=== PATIENT | male | born 1940 | race Caucasian/White ===

== ENCOUNTER 2018-08-11 08:51 | Inpatient (IN) | payer OTHER ==
[2018-08-11] VITALS (10 sets, daily range): BP systolic 85–106; BP diastolic 51–66
[~2018-08-11] VITALS: Ht 167.6 cm; Wt 64.9 kg
[2018-08-11 10:57] LABS: BE(vivo) -8.7 mmol/L (-2 to +3); HCO3 23.2 mmol/L (22.0-26.0); PCO2 78.1 mmHg (35.0-45.0); PO2 99.8 mmHg (80.0-100.0); pH 7.091 (7.360-7.450); sO2 94.7 % (92.0-98.0)
[2018-08-11 11:40] LABS: ABSOLUTE NEUTROPHILS 13.6 thou/uL (1.4-8.2); BASOPHILS 0.1 % (0.0-2.0); HEMATOCRIT 45.6 % (42.0-52.0); HEMOGLOBIN 14.6 gm/dL (14.0-18.0); LYMPHOCYTES 1.5 % (24.0-44.0); MCV 84.4 fL (80.0-100.0); MONOCYTES 3.3 % (1.0-8.0); PLATELET COUNT 250 thou/uL (150-400); POLYS 95.1 % (36.0-66.0); RDW 14.9 % (10.5-14.5); WBC 14.3 thou/uL (4.0-11.0)
[2018-08-11 11:48] LABS: CALCIUM 8.8 mg/dL (8.5-10.1); CREATININE 1.6 mg/dL (0.7-1.3); POTASSIUM 5.4 mmol/L (3.5-5.1)
[2018-08-11 11:51] LABS: APTT 34.7 Seconds (24.5-32.8); FIBRINOGEN 402.2 mg/dL (210-360); PROTIME 10.7 Seconds (9.3-11.4)
[2018-08-11 12:03] LABS: ALBUMIN 3.4 g/dL (3.4-5.0); TOTAL BILIRUBIN 0.5 mg/dL (<0.1-1.0); TOTAL PROTEIN 7.1 g/dL (6.4-8.2)
[2018-08-11] MEDS ORDERED: ADVAIR HFA 230M12 GM INH (12:29)
[2018-08-11] MEDS ORDERED: ALLOPURINOL 10100 M1 PO (12:30)
[2018-08-11] MEDS ORDERED: ASPIR 8181 MG PO (12:31)
[2018-08-11] MEDS ORDERED: FLONASE 0.05%50 MCG NASAL (12:31)
[2018-08-11] MEDS ORDERED: LEVALBUTER1.25 MG/0. INH (12:32)
[2018-08-11] MEDS ORDERED: UNICOMPLEX M TA1 TA1 PO (12:34)
[2018-08-11] MEDS ORDERED: MUCINEX100 MG PO (12:34)
[2018-08-11] MEDS ORDERED: PROSTATE HEALT1 EAC1 PO (12:35)
[2018-08-11] MEDS ORDERED: PREDNISONE 10 M10 M1 PO (12:35)
[2018-08-11] MEDS ORDERED: SPIRIVA INH (12:36)
[2018-08-11] MEDS ORDERED: XANAX 0.25 MG0.25 MG PO (12:36)
[2018-08-11] MEDS ORDERED: PROAIR (12:39)
[2018-08-11 12:48] LABS: BE(vivo) -4.2 mmol/L (-2 to +3); HCO3 22.5 mmol/L (22.0-26.0); sO2 98.7 % (92.0-98.0)
[2018-08-11 12:49] LABS: pH 7.298 (7.360-7.450)
[2018-08-11 15:32] LABS: BE(vivo) 0.1 mmol/L (-2 to +3); HCO3 25.5 mmol/L (22.0-26.0); PO2 108.1 mmHg (80.0-100.0); pH 7.381 (7.360-7.450); sO2 97.8 % (92.0-98.0)
[2018-08-11 15:51] LABS: URINE BILIRUBIN NEGATIVE (Negative); URINE BLOOD 1+ (Negative); URINE CLARITY CLEAR; URINE COLOR YELLOW; URINE GLUCOSE-RANDOM* NEGATIVE (Negative); URINE KETONES NEGATIVE (Negative); URINE LEUKOCYTES-REFLEX NEGATIVE (Negative); URINE NITRITE-REFLEX NEGATIVE (Negative); URINE PROTEIN (DIPSTICK) NEGATIVE (Negative); URINE SPECIFIC GRAVITY <= 1.005 (1.005-1.035); URINE UROBILINOGEN 0.2 E.U./dl (0.2-1.0)
[2018-08-11 16:01] LABS: BACTERIA-REFLEX None Seen /HPF (None Seen); CASTS None Seen /LPF (None Seen); CRYSTALS None Seen /LPF (None Seen); SQUAMOUS 0-3 Few /LPF (0-3); URINE RBC 3-10 Few /HPF (0-2)
[2018-08-11 16:02] LABS: URINE WBC-REFLEX None Seen /HPF (0-5)
--- NOTE | 2018-08-11 16:21 | NUR ---
CONSULTED TO PLACE A PICC FOR A PATIENT ADMITTED TO ICU WITH RR FAILURE ON MULTIPLE IV ANTIBIOTICS AND PROPOFOL. ORDER AND CONSENT NOTED. THE PROCEDURE WELL BENIFITS AND RISKS FOR DVT AND INFECTION DISCUSSED WITH THE AND SHE VERBALIZED UNDERSTANDING. THE RIGHT UPPER ARM BASILIC WAS WIDLEY PATENT. A #5F TRIPLE LUMEN POWER PICC WAS PLACED AFTER A BEDSIDE TIMEOUT WAS COMPLETED PER HOSPITAL POLICY. LINE WAS TRIMMED TO 40CM AND ADVANCED WITHOUT DIFFICULTY. LINE WAS CONFIRMED BY THE RADIOLOGIST (DR. HERRERA) TO BE IN GOOD POSITION. ICU NOTIFIED THAT LINE IS RELEASED FOR USE
--- NOTE | 2018-08-11 19:17 | NUR ---
PATIENT ADMITTED FROM [facility], ALERT ON LIGHT SEDATION AND INTUBATED. FOLLOWS COMMANDS. ON VENTILATOR 40%. OG TUBE TO LOW INTERMITTENT SUCTION. TURNED Q2H. 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 VANESSA PATENT AND DRAINING, ADEQUATE OUTPUT. CLOSESLY MONITORED PER DR. DAY. FAMILY UPDATED ON THE PLAN OF CARE. NO SIGNS OF ACUTE DISTRESS NOTED AT THIS TIME. WILL CONTINUE TO MONITOR.
[2018-08-12] VITALS (41 sets, daily range): BP systolic 80–150; BP diastolic 46–84
--- NOTE | 2018-08-12 04:25 | NUR ---
PT REMAINS ON VENT FIO2 30% WHICH HAS BEEN TITRATED TOWN THROUHGOUT SHIFT FROM 40% SATS CURRENTLY 97% PT AFEBRILE AND BP REMAINS SOFT. PT TOLERATING SEDATION. MAINTENANCE IVF RUNNING. OGT TO LIS. PT HAS MOMENTS OF AGITATION AND ATTEMPTING TO SIT UP OUT OF BED.
[2018-08-12 05:13] LABS: BE(vivo) -1.9 mmol/L (-2 to +3); HCO3 21.5 mmol/L (22.0-26.0); PCO2 32.8 mmHg (35.0-45.0); PO2 103.3 mmHg (80.0-100.0); pH 7.435 (7.360-7.450); sO2 97.9 % (92.0-98.0)
[2018-08-12 05:36] LABS: ABSOLUTE NEUTROPHILS 12.3 thou/uL (1.4-8.2); BASOPHILS 0.2 % (0.0-2.0); HEMATOCRIT 37.1 % (42.0-52.0); LYMPHOCYTES 3.1 % (24.0-44.0); MCH 27.2 pg (26.0-34.0); MCHC 32.7 g/dL (28.0-37.0); MCV 83.3 fL (80.0-100.0); PLATELET COUNT 231 thou/uL (150-400); POLYS 92.7 % (36.0-66.0); RBC 4.45 mil/uL (4.50-6.00); WBC 13.2 thou/uL (4.0-11.0)
[2018-08-12 05:46] LABS: HEMOGLOBIN 12.1 gm/dL (14.0-18.0)
[2018-08-12 05:51] LABS: ALBUMIN 2.7 g/dL (3.4-5.0); CREATININE 1.8 mg/dL (0.7-1.3); DIRECT BILIRUBIN 0.2 mg/dL (<0.1-0.3); TOTAL BILIRUBIN 0.4 mg/dL (<0.1-1.0); TOTAL PROTEIN 5.6 g/dL (6.4-8.2)
[2018-08-12 05:56] LABS: POTASSIUM 3.7 mmol/L (3.5-5.1)
--- NOTE | 2018-08-12 08:41 | HC ---
[facility] [place] [address] CONSULTATION Name: PRUDENCE MILLS Room #: 244-P ADM IN M.R.#: [id number] Admission: 08/11/18 ������������������ Attend Phys: Rashaad Dominguez DO Discharge: ������������������ Date of : 39 Report #: [id number] THIS REPORT FOR: //name// CC: Brian Dominguez DATE OF SERVICE: 08/11/2018 INFECTIOUS DISEASES CONSULTATION REASON FOR CONSULTATION: I was asked to evaluate concerning pneumonia and sepsis. HISTORY OF PRESENT ILLNESS: The patient is a 78-year-old, with underlying history of aortic stenosis, COPD, who presents with respiratory failure. He was initially evaluated at [facility]. He was hypercapnic. He tried BiPAP for resuscitation, but did not improve the situation. He was intubated and then transported to [facility] for further care. who was at the bedside and one other family member assisted with the history. They note that he has issues with episodes of shortness of breath for extended period of time now. He has significant amount of postnasal drip and sinus congestion. He takes nebulizers at home to help loosen things up and expectorate. In the last 48 hours, he has had progressive shortness of breath and developed respiratory failure early this morning, unable to get out of the house on his own and was brought in by EMS. No chest pain reported. No hemoptysis. He has had no nausea, vomiting or diarrhea. No palpitations or syncopal episodes. No dysuria, frequency, rash or arthritis symptoms. REVIEW OF SYSTEMS: A 10-point review of systems was negative other than what is described above. ALLERGIES: None known. MEDICATIONS: As noted on his MAR, now including vancomycin and Zosyn. He has been on prednisone 10 mg a day. PAST MEDICAL HISTORY: Pulmonary embolism, asthma, COPD, bronchitis, sinusitis, aortic stenosis, gout. FAMILY HISTORY: Noncontributory. 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 No tobacco or alcohol use. PHYSICAL EXAMINATION: [facility] [address] [place] [address] CONSULTATION Name: PRUDENCE MILLS Kvng Room #: 244-P [facility] IN ..#: [id number] Admission: 08/11/18 ������������������ Attend Phys: Rashaad Dominguez DO Discharge: ������������������ Date of : 39 Report #: [id number] VITAL SIGNS: He is afebrile and hemodynamically stable. He was sedated on propofol. He is intubated on FiO2 of 60%, AC mode. He was in sinus rhythm at 88, blood pressure was stable. GENERAL: The patient would arouse to verbal stimulus. SKIN: Without rash or decubitus. No palpable adenopathy. HEENT: Eyes, without scleral icterus. Mouth without mucositis. NECK: Supple, with no thyromegaly or mass. LUNGS: Coarse bilaterally. No consolidation. No rub. HEART: Regular without murmur, gallop or rub. ABDOMEN: Soft, nontender. No hepatosplenomegaly or mass appreciated. EXTREMITIES: With peripheral IV in place. No erythema or drainage. No clubbing, cyanosis or edema. Able to move all extremities. PSYCHIATRIC: Unable to assess mood. GENITOURINARY: External genitalia unremarkable with no masses or lesions. An indwelling Frazier catheter is present. RECTAL: Not performed. LABORATORY STUDIES: ABG on 60%, pO2 of 150, pCO2 of 47, pH 7.29. Procalcitonin 0.19. Sodium 137, potassium 5.4, bicarbonate 27, creatinine 1.6. Liver function test normal except for an AST of 58, ALT 107. Lactate 2.8. Hemoglobin 14.6, WBC 14.3, platelet count 250,000. Blood cultures pending. No sputum culture available. Chest x-ray with right lower lobe and left medial lung base infiltrates with consolidation. IMPRESSION: A 78-year-old with underlying chronic obstructive pulmonary disease, aortic stenosis and respiratory failure with bilateral pulmonary infiltrates. Suspect community-acquired pneumonia as etiology for his respiratory failure. He has farmland exposure. No tuberculosis exposure. No HIV risk factors noted. RECOMMENDATION: We will continue full support in the ICU. Obtain sputum, serum and urine samples. Broad antibiotic coverage and we will narrow pending culture results. I have discussed with nursing staff at the bedside. Will need serial chest x-rays. ��������������������������������������������� <ELECTRONICALLY SIGNED> ���������������������������������������� By: Raciel Chong MD ��������������������������������������������� 08/12/18 0841 1428 0432 Raciel Chong MD /nt
[2018-08-12 09:11] LABS: BE(vivo) -0.9 mmol/L (-2 to +3); HCO3 22.9 mmol/L (22.0-26.0); PCO2 35.1 mmHg (35.0-45.0); PO2 97.2 mmHg (80.0-100.0); pH 7.432 (7.360-7.450); sO2 97.6 % (92.0-98.0)
--- NOTE | 2018-08-12 09:18 | EKG ---
[place] [address] [address] [facility] [place] [address] ELECTROCARDIOGRAM REPORT Name: GENEPRUDENCE Room #: 244- ADM IN M.R.#: [id number] ������������������ Admission: 08/11/18 ������������������ Attend Phys: Rashaad Dominguez DO Discharge: ������������������ Date of : 39 Report #: [id number] ����������������������������������������������������������������� [id number] THIS REPORT FOR: //name// [facility] Test Date: 2018-08-12 Test Time: 07:36:29 Pat Name: PRUDENCE MILLS Department: Room: 244 P Gender: M Skid Strapper: ALESHA : 1940 Requested By: Gerardo Raymond Order Number: [id number] MD: Vazquez Vazquez Measurements Intervals [place] Rate: 101 P: 72 NC: 175 QRS: 43 QRSD: 106 T: 230 QT: 366 QTc: 475 Interpretive Statements Sinus tachycardia Abnormal T, consider ischemia, diffuse leads Compared to ECG 08/16/2004 14:11:10 T-wave abnormality now present Ventricular premature complex(es) no longer present Electronically Signed On 08-12-2018 9:18:47 CDT by Vazquez Vazquez [email or web address] ��������������������������������������������� <ELECTRONICALLY SIGNED> ���������������������������������������� By: Vazquez Vazquez MD, [facility] ��������������������������������������������� 08/12/18 0918 0736 0736 Vazquez Vazquez MD, [facility] /EPI
[2018-08-12 12:06] LABS: HIV ANTIBODY Non Reactive (Non Reactive)
--- NOTE | 2018-08-12 16:48 | NUR ---
PATIENT ALERT AND ORIENTED X4, NO COMPLAINTS OF PAIN. EXTOBATED AT 0935, ON ROOM AIR, NO COMPLAINTS OF RESPIRATORY DISTRESS. SINUS RHYTHM TO SINUS TACHYCARDIA ON GYM SUPERVISOR. TOLERATING DIET. VANESSA REMOVED AT 1630. BLOOD SUGAR MONITORED. PATIENT AND FAMILY UPDATED ON THE PLAN OF CARE. NO SIGNS OF ACUTE DISTRESS NOTED AT THIS TIME. WILL CONTINUE TO MONITOR.
[2018-08-13] VITALS (21 sets, daily range): BP systolic 100–168; BP diastolic 45–106
[2018-08-13 06:05] LABS: BASOPHILS 0.4 % (0.0-2.0); HEMATOCRIT 34.9 % (42.0-52.0); HEMOGLOBIN 11.3 gm/dL (14.0-18.0); LYMPHOCYTES 2.6 % (24.0-44.0); MCH 27.1 pg (26.0-34.0); MCHC 32.4 g/dL (28.0-37.0); MCV 83.9 fL (80.0-100.0); MONOCYTES 4.2 % (1.0-8.0); PLATELET COUNT 222 thou/uL (150-400); POLYS 92.8 % (36.0-66.0); RBC 4.16 mil/uL (4.50-6.00); RDW 14.7 % (10.5-14.5)
[2018-08-13 06:20] LABS: CALCIUM 8.3 mg/dL (8.5-10.1); CREATININE 1.5 mg/dL (0.7-1.3); POTASSIUM 4.3 mmol/L (3.5-5.1)
--- NOTE | 2018-08-13 06:29 | NUR ---
Pt slept well through the night with stable VS and no c/o pain. Becomes SOA with any exertion and SpO2 remain adequate on 2L of O2. Up to void per urinal without difficulty. Taking in PO with no c/o nausea and no BM observed. Am lab results noted, continue with POC.
--- NOTE | 2018-08-13 08:21 | EKG ---
[place] [address] [place] [address] ELECTROCARDIOGRAM REPORT Name: GENEPRUDENCE Room #: 244- ADM IN M.R.#: [id number] ������������������ Admission: 08/11/18 ������������������ Attend Phys: Rashaad Dominguez DO Discharge: ������������������ Date of : 39 Report #: [id number] ����������������������������������������������������������������� [id number] THIS REPORT FOR: //name// [facility] Test Date: 2018-08-13 Test Time: 07:38:52 Pat Name: PRUDENCE MILLS Department: Room: 244 P Gender: M Sr Community Manager: Lisa DELAROSA : 1940 Requested By: Marialuisa Brasher Order Number: [id number] MD: Vazquez Vazquez Measurements Intervals [place] Rate: 92 P: 70 WV: 177 QRS: 54 QRSD: 108 T: 217 QT: 355 QTc: 440 Interpretive Statements Sinus rhythm Ventricular premature complex Probable LVH with secondary repol abnrm Compared to ECG 08/12/2018 07:36:29 Ventricular premature complex(es) now present Sinus tachycardia no longer present Anterior T wave abnormality is less pronounced Electronically Signed On 08-13-2018 8:21:05 CDT by Vazquez Vazquez [email or web address] ��������������������������������������������� <ELECTRONICALLY SIGNED> ���������������������������������������� By: Vazquez Vazquez MD, [facility] ��������������������������������������������� 08/13/18 0821 0738 0738 Vazquez Vazquez MD, [facility] /EPI
--- NOTE | 2018-08-13 09:54 | NUR ---
Case opened to follow for dc planning needs. Pt is currently in the ICU with copd exac/pneumonia. He is a&ox4 and indicates that [place] with his . He is normally indep with gait and adl's and has no dme or hh history. He notes that he is waiting for his lungs to get better so he can have a heart cath. His pcp is Dr Brian Pacheco. 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 He has 3 steps to enter their home and 12 to the basement. He is normally able to do these indep. He is receptive to home o2 or hh if indicated at dc. No family here at present. He reports his does not drive and his dtr is a aboriginal home school liaison officer so neither will be up here during the daytime hours. Will ask for therapy evals to assess for any dc needs. The pt is hoping to transfer out of ICU today. Cm role introduced. Will follow.
--- NOTE | 2018-08-13 16:54 | NUR ---
PT IS ALERT AND ORIENTED X4. SHORT OF BREATH WITH ACTIVITY. ON 3 LITERS OXYGEN. LUNGS ARE WHEEZY TO DIMINISHED. WALK THE HALLWAY WITH PT TODAY. BOWEL SOUNDS ACTIVE X4. ABDOMEN IS ROUND. TOLERATING HEART HEALTHY DIET. SCDS ON BILATERAL. PAGED DR. MONTOYA FOR BLOOD PRESSURE MEDICATION. PT ANXIOUS AT TIMES AND MEDS GIVEN FOR ANXIETY. SINUS RHYTHM ON THE MONITOR. WILL CONTINUE TO MONITOR AND ASSESS PER NURSING
--- NOTE | 2018-08-13 20:00 | NUR ---
PT SUDDENLY JUMPED OVER BED RAIL AND YELLED OUT I HAVE TO PEE. PT STANDS TO VOID. BACK TO BED BED ALARM ON. WILL CONT TO MONITOR.
[2018-08-14] VITALS (13 sets, daily range): BP systolic 119–155; BP diastolic 62–87
--- NOTE | 2018-08-14 04:10 | NUR ---
HYPERTENSIVE AND VERY ANXIOUS BP 200/110 HYDRALAZINE 10 MG IV ATIVAN IVP FOR AGITATION. WILL CONT TO MONITOR.
--- NOTE | 2018-08-14 06:00 | NUR ---
PT RESTING QUIETLY. AROUSES EASILY. CALM AND COOPERATIVE. SBP 140/85 VOIDED 800 CC URINE TONIGHT. LUNGS SOUND MUCH CLEARER THIS HOUR. 2 L NC. SKIN COOL AND DRY. REMAINS IN SR TO SINUS TACH. WILL CONT TO MONITOR.
[2018-08-14 11:10] LABS: CALCIUM 8.4 mg/dL (8.5-10.1); CREATININE 1.4 mg/dL (0.7-1.3); POTASSIUM 4.1 mmol/L (3.5-5.1)
--- NOTE | 2018-08-14 15:04 | NUR ---
ALERT AND ORIENTED, FORGETFUL AND HARD OF HEARING RT EAR. VITALS STABLE. UP TO THE CHAIR WITH MINIMA ASSSISTANCE. HAS DENIED PAIN. CONTINUOUS TO BE SHORT OF AIR WITH ACTIVITY BUT MAINTAINS SATS ABOVE 92%. TRANSFER ORDERS IN [facility] SINCE YESTERDAY, PATIENT WAITING FOR CCU BED TO BE AVAILABLE.
[2018-08-15] VITALS (9 sets, daily range): BP systolic 109–163; BP diastolic 62–89
--- NOTE | 2018-08-15 03:21 | NUR ---
PT IS STILL VERY SHORT OF BREATH WITH MINIMAL TO MODERATE EXERTION. ASSESSMENT CHARTED. PT REDUCED TO 2L NC BY RT. PLANS ARE TO HAVE HEART CATH DONE NEXT WEEK BY CARDIOLOGY WHILE THE PT IS HERE. VSS. CALM AND COOPERATIVE ALL SHIFT. CALL LIGHT IN REACH. CONTINUE WITH PLAN OF CARE
[2018-08-15 08:31] LABS: ABSOLUTE NEUTROPHILS 13.7 thou/uL (1.4-8.2); BASOPHILS 0.1 % (0.0-2.0); HEMATOCRIT 40.4 % (42.0-52.0); LYMPHOCYTES 2.7 % (24.0-44.0); MCHC 32.2 g/dL (28.0-37.0); MCV 83.9 fL (80.0-100.0); MONOCYTES 5.6 % (1.0-8.0); PLATELET COUNT 205 thou/uL (150-400); POLYS 91.6 % (36.0-66.0); RBC 4.82 mil/uL (4.50-6.00); RDW 15.1 % (10.5-14.5); WBC 14.9 thou/uL (4.0-11.0)
[2018-08-15 08:49] LABS: ALBUMIN 3.1 g/dL (3.4-5.0); CALCIUM 8.8 mg/dL (8.5-10.1); CREATININE 1.1 mg/dL (0.7-1.3); POTASSIUM 4.5 mmol/L (3.5-5.1); TOTAL BILIRUBIN 0.6 mg/dL (<0.1-1.0); TOTAL PROTEIN 6.3 g/dL (6.4-8.2)
[2018-08-15 09:54] LABS: BE(vivo) 2.3 mmol/L (-2 to +3); HCO3 27.5 mmol/L (22.0-26.0); PCO2 44.7 mmHg (35.0-45.0); pH 7.407 (7.360-7.450)
--- NOTE | 2018-08-15 15:35 | NUR ---
PT REMAINS ON O2 2 LITERS NC. NO HOME O2. DISCHARGED FROM P.T. 08/13. CCU BED STATUS SINCE 08/13/18. POSSIBLE NEED FOR HOME O2 AND DISCUSSED WITH DR. PHILIPPE WHO INDICATES HE WILL ORDER EXERCISE OXIMETRY.
--- NOTE | 2018-08-15 16:58 | NUR ---
PT ALERT AND ORIENTED X4. CONSTANT, PRODUCTIVE COUGH WITH THICK YELLOW, BEIGE SPUTUM. LUNG SOUNDS WHZ. SPUTUM SPECIMEN SENT TO LAB. CXRAY AND ABG DONE. PT VERY SOA WITH ANY EXERTION THIS AM. THIS AFTERNOON AMBULATING IN HALLWAY WITH MIN ASSIST. O2 SAT >92% WHILE AMBULATING ON 2L/NC. UP TO CHAIR FOR WHOLE DAY TODAY. WILL CONTINUE TO MONITOR PATIENT.
[2018-08-16] VITALS: BP 142/85
[2018-08-16 04:00] VITALS: BP 116/57
--- NOTE | 2018-08-16 05:29 | NUR ---
ASSUMED PATIENT CARE AT 1900. PATIENT AAOX4 AND ON 2 L NC. PATIENT NOTED TO HAVE A STRONG COUGH. PATIENT RESTED WELL DURING THE NIGHT WITHOUT ANY COMPLAINTS OF PAIN OR NAUSEA. VS REMAINED STABLE AND HOURLY ROUNDING COMPLETED. PATIENT PROGRESSING TOWARD GOAL.
[2018-08-16 05:49] LABS: HEMATOCRIT 40.3 % (42.0-52.0); MCH 26.7 pg (26.0-34.0); MCHC 32.4 g/dL (28.0-37.0); MCV 82.4 fL (80.0-100.0); RBC 4.89 mil/uL (4.50-6.00); RDW 14.7 % (10.5-14.5); WBC 13.4 thou/uL (4.0-11.0)
[2018-08-16 05:59] LABS: ALBUMIN 2.9 g/dL (3.4-5.0); CALCIUM 8.7 mg/dL (8.5-10.1); CREATININE 1.1 mg/dL (0.7-1.3); POTASSIUM 4.1 mmol/L (3.5-5.1); TOTAL BILIRUBIN 0.3 mg/dL (<0.1-1.0); TOTAL PROTEIN 5.8 g/dL (6.4-8.2)
--- NOTE | 2018-08-16 12:51 | NUR ---
ASSUMED CARE AT SHIFT CHANGE, ALERT AND ORIENTED X4, [place]. DENIES ANY DISCOMFORT. UP WALKING AROUND THE ROOM. VSS AND AFEBRILE. WHEEZING THROUGH OUT AND REAMINS ON O2 2L, NC. BG WNL. PROGREESING TOWARDS GOALS
[2018-08-16 13:25] VITALS: BP 131/76
[2018-08-16 16:00] VITALS: BP 126/79
--- NOTE | 2018-08-16 20:00 | NUR ---
ASSUMED CARE OF PT AT 1330. PT WAS TRANSFERRED FROM ICU. PT A&OX4, UP AD SRINIVAS. PT VITAL SIGNS WITHIN NORMAL LIMITS AND WAS SINUS RHYTHM OF TELEMETRY. PT ON 2L OXYGEN AND LUNGS SOUNDS WHEEZY. PT STATE HE HAS ALWAYS HAD SHORTNESS OF AIR WITH EXCERTION. FAMILY CONCERNED WHEN PT TO BE DISCHARGED. WANT TO KNOW WHEN PT WILL HAVE HEART CATH. WILL CONT WITH POC.
[2018-08-16 20:25] VITALS: BP 143/87
[2018-08-17 00:01] VITALS: BP 116/83
[2018-08-17 04:45] VITALS: BP 130/70
--- NOTE | 2018-08-17 05:09 | NUR ---
PT. ON CHAIR AT SHIFT CHANGE; AROUND 1900; AOX4; WHEN ASKED IF PT. IS DNR; PT. STATE HE WOULD LIKE TO HAVE CPR IF STOP BREATHING; DURING ASSESSMENT C/O ACID REFLUX; SCHEDULE MEDICATION GIVEN; ABLE TO AMBULATE BY HIMSELF; ABLE TO REST THROUGH THE NIGHT WITH EYES CLOSE; VS WNL; WILL KEEP MONITORING; WILL PASS ON REPORT;
[2018-08-17 07:28] VITALS: BP 123/62
[2018-08-17 11:31] VITALS: BP 112/68
--- NOTE | 2018-08-17 16:03 | NUR ---
ASSUMED CARE OF PT AT 0700. PT A&OX4, UP AD SRINIVAS. PT NOW ON ROOM AIR AND MAINTAINING 02 SATS >90%. PT AMBULATING AROUND UNIT TO MAINTAIN STRENGTH. PT'S VITALS WNL AND PT WAS SINUS RHYTHM ON TELEMETRY. PT RECEIVED NOTICE AND EDUCATION REGARDING TELEMETRY INTERFERENCE YESTERDAY BY THIS NURSE. PLANNING FOR HEART CATH MON OR . PT RECEIVED LASIX FOR DIURESIS TODAY. PT HAD SHOWER. WILL CONT WITH POC.
[2018-08-17 16:19] VITALS: BP 115/59
[2018-08-17 20:00] VITALS: BP 119/78
[2018-08-17 22:05] LABS: ADENOVIRUS Negative (Negative); INFLUENZA A Negative (Negative); INFLUENZA B Negative (Negative); METAPNEUMOVIRUS Negative (Negative); PARAINFLUENZA 1 Negative (Negative); PARAINFLUENZA 2 Negative (Negative); PARAINFLUENZA 3 Negative (Negative); RHINOVIRUS Negative (Negative); RSV A Negative (Negative); RSV B Negative (Negative)
[2018-08-18] VITALS (10 sets, daily range): BP systolic 106–139; BP diastolic 65–82
--- NOTE | 2018-08-18 04:48 | NUR ---
PT RESTING ON AND OFF THRU THE NOC, VSS WNL, HR SR, NO C/O PAIN WILL CON'T TO MONITOR PER PPOC.
[2018-08-18 11:00] LABS: HEMATOCRIT 39.2 % (42.0-52.0); HEMOGLOBIN 12.6 gm/dL (14.0-18.0); MCH 26.7 pg (26.0-34.0); MCHC 32.2 g/dL (28.0-37.0); MCV 82.9 fL (80.0-100.0); RBC 4.72 mil/uL (4.50-6.00); RDW 14.8 % (10.5-14.5); WBC 11.6 thou/uL (4.0-11.0)
[2018-08-18 11:09] LABS: CALCIUM 8.7 mg/dL (8.5-10.1); CREATININE 1.1 mg/dL (0.7-1.3); MAGNESIUM 2.2 mg/dL (1.8-2.4); POTASSIUM 3.5 mmol/L (3.5-5.1)
--- NOTE | 2018-08-18 12:08 | NUR ---
Assess due to length of stay. Admit with acute/chronic respiratory failure, hx COPD and had be intubated. Extubated 08/12 and now s/p PTCA this am. Diet has readvanced. Has been tolerating oral intake past few days. Wts sown 8 lb but required some diuresis. Low nutrition risk
--- NOTE | 2018-08-18 16:50 | NUR ---
Patient assessments and vital signs as documented. He has been up ambulating since the cardiac catheterization. Dressing is clean dry and intact, no hematoma or bleeding noted. No numbness/tingling noted. He denies pain. He is on room air with oxygen saturations >95%. Nurse to continue to monitor patient status.
--- NOTE | 2018-08-18 18:32 | NUR ---
PATIENT AMBULATED AROUND THE HALLWAYS THIS EVENING. HE TOLERATED ACTIVITY WELL. NO BLEEDING NOTED AT RIGHT GROIN SITE. NO HEMATOMA, SITE IS CLEAN, DRY, AND INTACT.
[2018-08-19 03:35] VITALS: BP 107/67
[2018-08-19 03:45] LABS: HEMATOCRIT 40.4 % (42.0-52.0); MCH 26.6 pg (26.0-34.0); MCHC 32.2 g/dL (28.0-37.0); MCV 82.5 fL (80.0-100.0); RBC 4.9 mil/uL (4.50-6.00); WBC 14.6 thou/uL (4.0-11.0)
--- NOTE | 2018-08-19 03:49 | NUR ---
ASSESSMENTS CHARTED. PATIENTS GROIN SITE IS C/D/I/SOFT. DENIES PAIN. PATIENT IS CONCERNED THAT HIS FAMILY IS AN HOUR AWAY AND THAT HE WILL BE NOTIFIED IN ENOUGH TIME TO TELL HIS FAMILY TO COME GET HIM. HE IS HOPING TO GO HOME IN AM.
[2018-08-19 04:12] LABS: ALBUMIN 3.1 g/dL (3.4-5.0); CREATININE 1.3 mg/dL (0.7-1.3); POTASSIUM 3.9 mmol/L (3.5-5.1); TOTAL BILIRUBIN 0.5 mg/dL (<0.1-1.0); TOTAL PROTEIN 5.9 g/dL (6.4-8.2); TROPONIN-I 0.26 ng/mL (<0.06)
[2018-08-19 07:17] VITALS: BP 106/74
[2018-08-19] MEDS ORDERED: BYSTOLIC10 MG PO (07:58)
[2018-08-19] MEDS ORDERED: ATORVASTATIN CA40 MG PO (07:58)
[2018-08-19] MEDS ORDERED: ASPIR 8181 MG PO (07:58)
[2018-08-19] MEDS ORDERED: EFFIENT10 MG PO (07:58)
[2018-08-19] MEDS ORDERED: BENICAR40 MG PO (07:58)
[2018-08-19 11:32] VITALS: BP 107/55
[2018-08-19] MEDS ORDERED: CEFDINIR300 MG PO (12:03)
[2018-08-19] MEDS ORDERED: TORSEMIDE20 MG PO (12:05)
[2018-08-19] MEDS ORDERED: PREDNISONE 10 M10 MG PO (12:13)
[2018-08-19 12:29] VITALS: BP 107/55
--- NOTE | 2018-08-19 13:54 | NUR ---
ASSUMED CARE OF PT AT APPROX 0930. PT A&OX4, UP AD SRINIVAS. PT VERY ANXIOUS TO GO HOME. PT VITALS WITHIN NORMAL LIMITS EXCEPT BLOOD PRESSURE SLIGHTLY LOW. PT ASYMTOMATIC. PT WAS SINUS RHYTHM ON THE TELE MONITOR. PICC LINE REMOVED. TELEMETRY REMOVED. PT AND FAMILY STATED THAT PT HAD ALL BELONGING. PT AND SPOUSE COMMUNICATED UNDERSTANDING OF ALL DISCHARGE ORDERS, MEDS AND FOLLOWUP APPTS. PT GIVEN INFORMATION ON GROIN SIGHT CARE. PT TAKEN TO EXIT BY VOLUTEER VIA WHEELCHAIR AND FAMILY THERE TO DRIVE HIM HOME
--- NOTE | 2018-08-19 18:10 | HC ---
[facility] [place] [address] CONSULTATION Name: PRUDENCE MILLS Room #: 200-I [facility] IN .R.#: [id number] Admission: 08/11/18 ������������������ Attend Phys: Rashaad Dominguez DO Discharge: 08/19/18 ������������������ Date of : 39 Report #: [id number] THIS REPORT FOR: //name// CC: Brian Julian MD DATE OF SERVICE: 08/11/2018 PULMONARY CONSULTATION REFERRING PHYSICIAN: Rashaad Dominguez DO. REASON FOR CONSULTATION: Acute respiratory failure and possible sepsis. HISTORY OF PRESENT ILLNESS: The patient is a 78-year-old gentleman who was transferred from [facility] with respiratory failure. A pulmonary consultation was requested. The patient has known COPD. He is followed longitudinally by Dr. Renato Julian. History is limited. According to records, the patient presented to the Emergency Department at [place], [place] with acute onset of shortness of breath. The saturation was said to be 85% at rest. 911 was called. EMS transported the patient to the ER. There, the patient was found to be in severe distress where he had to be intubated. Chest x-ray performed at [facility] showed patchy strand-like opacities in the lower lung carroll, perihilar area, upper lobes and some atelectatic changes. PAST MEDICAL HISTORY: Includes history of COPD, severity unknown; obstructive sleep apnea, gout, hypertension, history of aortic stenosis, history of dilated cardiomyopathy, peripheral artery disease including carotid artery stenosis, chronic maxillary sinusitis, osteoarthritis, low back pain, history of pulmonary embolus diagnosed in 05/2017. PAST SURGICAL HISTORY: Carpal tunnel surgery, colonoscopy, sinus surgery, status post carotid endarterectomy. ALLERGIES: None to medications. HOME MEDICATIONS: List reviewed. This include Advair, Flonase, levalbuterol, prednisone 10 mg once a day, ProAir, Spiriva, Xanax, allopurinol, aspirin, Mucinex, multivitamins, prostate health. FAMILY HISTORY: Unknown. SOCIAL HISTORY: The patient is a lifetime nonsmoker according to the records. [facility] [address] [place] [address] CONSULTATION Name: EUGENIO MILLSODALIS Calderon Room #: 200-I [facility] IN [facility]#: [id number] Admission: 08/11/18 ������������������ Attend Phys: Rashaad Dominguez DO Discharge: 08/19/18 ������������������ Date of : 39 Report #: [id number] REVIEW OF SYSTEMS: Deferred as the patient is intubated. PHYSICAL EXAMINATION: GENERAL: He is sedated. VITAL SIGNS: Blood pressure 180/130 mmHg, pulse is 120 beats per minute, respiratory rate is 20, saturating 100%. HEENT: Normocephalic, atraumatic. NECK: Supple, without lymphadenopathy or thyromegaly. CHEST: Breath sounds are fair without obvious wheezes. Few scattered crackles. CARDIOVASCULAR: Normal S1, S2. No obvious murmurs or gallop. ABDOMEN: Soft, nontender, no organomegaly or masses felt. GENITOURINARY: Deferred. RECTAL: Deferred. EXTREMITIES: There is some mild cyanosis diffusely. NEUROLOGIC: Deferred. LABORATORY DATA: Portable chest x-ray report as mentioned above. Chest x-ray pending presently. EKG performed at [facility] shows sinus tachycardia, nonspecific ST-T changes without any acute ST elevation or depression. Arterial blood gas at [facility] revealed pH 7.09, pCO2 of 80, pO2 of 256. Sodium 140, potassium 4.6, chloride 102, CO2 is 24, creatinine is 1.3. Liver functions are mildly abnormal. BNP is 2300. WBC 16,900, hemoglobin is 14.9, platelets are normal. IMPRESSION: 1. Acute on chronic hypercapnic hypoxic respiratory failure. The patient has a history of chronic obstructive pulmonary disease along with sleep apnea. Chest x-ray shows patchy bilateral infiltrates. He has aortic stenosis along with cardiomyopathy. With the acuity of symptoms, pneumonia is likely, cannot rule out component of heart failure. 2. Chronic obstructive pulmonary disease, severity unknown, on exacerbation. 3. Bilateral infiltrates as mentioned above, probable pneumonia, possible heart failure. 4. Aortic stenosis, check echocardiogram. 5. Dilated cardiomyopathy. 6. Renal insufficiency, presumed acute kidney injury due to sepsis, acute tubular necrosis. 7. Elevated liver enzymes due to presumed sepsis. 8. History of pulmonary embolus, details unknown, originally diagnosed in 05/2017, not on anticoagulation on admission. 9. Chronic back pain with osteoarthritis. 10. History of chronic sinusitis. 11. Peripheral artery disease with carotid artery stenosis, status was carotid endarterectomy. 12. History of gout. [address] [address] CONSULTATION Name: PRUDENCE MILLS Kvng Room #: 200-I [facility] IN [facility].#: [id number] Admission: 08/11/18 ������������������ Attend Phys: Rashaad Dominguez DO Discharge: 08/19/18 ������������������ Date of : 39 Report #: [id number] RECOMMENDATION: We will treat for presumed pneumonia, possible heart failure, sepsis protocol has been initiated, treat for exacerbation of COPD with steroids, bronchodilators. We will need to monitor urine output closely. I will obtain echocardiogram, repeat EKG, laboratory data, ABG. In regards to his mechanical ventilation, his lung compliance is quite poor with high peak air pressures, tidal volume only around 450. Reasons for these are unclear other than underlying parenchymal lung disease such as pulmonary fibrosis and profound pneumonia and/or heart failure. DVT and GI prophylaxis recommended. Critical care 1 hour. Thank you for this consultation. ��������������������������������������������� <ELECTRONICALLY SIGNED> ���������������������������������������� By: Yamil Cox MD ��������������������������������������������� 08/19/181809 1132 21 Yamil Cox MD /nt
--- NOTE | 2018-08-20 09:23 | EKG ---
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 Kitchen 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: HERLINDA : 1940 Requested By: Gerardo Raymond Order Number: [id number] MD: Franklin Lopez Measurements Intervals [place] Rate: 89 P: 70 [place]: 167 QRS: 51 QRSD: 106 T: 237 QT: 363 QTc: 442 Interpretive Statements Sinus rhythm LVH with secondary repolarization abnormality Baseline wander in lead(s) V2 Compared to ECG 08/13/2018 07:38:52 Ventricular premature complex(es) no longer present Electronically Signed On 08-20-2018 9:23:00 CDT by Franklin Lopez [email or web address] ��������������������������������������������� <ELECTRONICALLY SIGNED> ���������������������������������������� By: Franklin Lopez MD ��������������������������������������������� 08/20/1823 7 7 Franklin Lopez MD /EPI
--- NOTE | 2018-08-21 11:43 | CATHLAB ---
[facility] [address] [place] [address] INVASIVE PROCEDURE REPORT Name: PRUDENCE MILLS Kvng Room #: 200-I DIS IN [facility]#: [id number] ������������� Admission: 08/11/18 ������������� Attend Phys: Rashaad Dominguez, Discharge: ��� 08/19/18 ������������� ��� Date of : 38 Date of Service: 08/21/18 1143 �� Report #: [id number] �������� ��������������������������������������������[id number] THIS REPORT FOR: //name// APPROVED REPORT Study performed: 08/18/2018 08:09:21 Patient Details Patient Status: In-Patient Room #: The patient is a 78 year-old male Event Personnel Gerardo Raymond Block Saw Operator, Jose Amor RN, Natalie Matias Monitor, Cindy Nj Scrub Procedures Performed Art Access - R femoral artery* Jake Access - R femoral vein 71656 Initial Mod Sed Same Phys/QHP Gr5y 998756 98563 Mod Sed Same Phys/QHP Ea 759455 Right and Left Heart Cath w/or w/o Coronarie [id number] [facility] Place w/wo Plasty Single OM 481926 PTCA Single Vessel CIRC 3248476 PCISINGLE Aortogram Abdominal Peripheral Angio 970496 Indication Chest pain Procedure Narrative The Right Groin^ was infiltrated with subcutaneous anesthesia. A Right Heart Catheterization was performed with a 7 Fr. [place] catheter and pressure were recorded. Cardiac outputs were obtained by the Thermal Dilution method. A PINNACLE 6FR TIF Sheath #[id number] sheath was inserted into the RFA^. Coronary angiography was performed using coronary diagnostic catheters. The right coronary system was accessed and visualized with a JR 4 catheter. The left coronary system was accessed and visualized with a JL 4 catheter. The left ventricle was accessed and visualized with a Pigtail catheter. Left ventriculogram was performed in AYON projection. An aortogram of the abdominal aorta was performed. Closure device was deployed with a 6 Fr Mynx. The patient tolerated the procedure well and there were no complications associated with the procedure. There was no hematoma. Intraoperative Conscious Sedation Sedation start time: 08:45 Case end Time: 09:54 Versed [address] [address] INVASIVE PROCEDURE REPORT Name: PRUDENCE MILLS Kvng Room #: 200-I [facility]#: [id number] ������������� Admission: 08/11/18 ������������� Attend Phys: Rashaad Dominguez, Discharge: ��� 08/19/18 ������������� ��� Date of : 38 Date of Service: 08/21/18 1143 �� Report #: [id number] �������� ��������������������������������������������[id number] Fluoro Time: 18.07 minutes Dose: DAP 48493.00 cGycm2 1788 mGy Contrast Type and Amount: Omnipaque 200 ml Hemodynamics The right atrial mean pressure is 10 mmHg. The right ventricular pressure is 37/5 mmHg. The pulmonary artery pressure is 38/11 mmHg with a mean of 24 mmHg. The mean pulmonary capillary wedge pressure is 13 mmHg. The aortic pressure is 116/54 mmHg with a mean of 78 mmHg. The left ventricular pressure is 124/22 mmHg with a mean of mmHg. The left ventricular end diastolic pressure is 33 mmHg. The cardiac output using thermo method is 4.40 L/min. The cardiac index using thermo method is 2.48 L/min/m2. PCI Technique Lesion Percutaneous coronary intervention was performed on the mid circumflex artery segment. A LAUNCHER 6FR EBU 3.5 #[id number] Guide Catheter was used to engage the ostium. A Luge Wire .014 x 182CM #[id number] Interventional Guidewire was used to cross the lesion. BALLOON DILATION A Balloon catheter Sprinter OTW 2.5 x 12 #[id number] was inserted and inflated up to 10.00atm for 27seconds. Additional Inflation: 8.00atm for 33seconds. Additional Inflation: 8.00atm for 42seconds. PCI Technique Lesion 2 Percutaneous Coronary Intervention was performed on the first obtuse marginal branch segment. A LAUNCHER 6FR EBU 3.5 #653943 Guide Catheter was used to engage the ostium. A Luge Wire .014 x 182CM #[id number] Interventional Guidewire was used to cross the lesion. Balloon Dilation A Balloon catheter Sprinter OTW 2.5 x 12 #[id number] was inserted and inflated up to 6atm for 21seconds. Additional Inflation: 8atm for 19seconds. Additional Inflation: 10atm for 27seconds. Stent Deployment A drug-eluting stent RESOLUTE ANURAG OTW 2.75 X 12 #[id number] was inserted and inflated up to 7.00atm for 42seconds. Additional Inflation: 12.00atm for 23seconds. Additional Inflation: 14.00atm for 22seconds. Post Stent Deployment Balloon Dilation [facility] [address] [place] [address] INVASIVE PROCEDURE REPORT Name: PRUDENCE MILLS Room #: 200-I [facility] IN .R.#: [id number] ������������� Admission: 08/11/18 ������������� Attend Phys: Rashaad Dominguez, Discharge: ��� 08/19/18 ������������� ��� Date of : 38 Date of Service: 08/21/18 1143 �� Report #: [id number] �������� ��������������������������������������������[id number] A Balloon catheter Euphora NC RX 3.0 x 8 #[id number] was inserted and inflated up to 18.00atm for 22seconds. Additional Inflation: 12atm for 23seconds. Conclusion #1 successful PTCA stent of a ostial circumflex OM placement of a 2.75 x 12 [place] resolute stent postdilated 3.1 mm yielding FRANCINE grade 3 flow #2 successful PTCA through the circumflex OM stent into the mid circumflex 80% pinched lesion to 20% post dilation #3 left main mild ostial disease of 20% giving rise to LAD and circumflex #4 LAD is mild lead disease in the mid vessel this extends around the apex is relatively small distal vessel no occlusive disease #5 dominant right coronary artery is tortuous 4050% proximal mid vessel fairly well preserved distal RCA and PDA small but dominant vessel no occlusive disease. #6 normal left ventricular size with mild global hypokinesis slightly worse inferior lateral EF 40% range #7 abdominal aortogram is diffusely diseased calcified. The right renal artery appears to have a 50% eccentric lesion mild disease in the left renal artery no aneurysm formation. #8 successful right heart catheterization with hemodynamics as stated above Indications and plan: Continue aggressive risk factor modification. Dual antiplatelet therapy to continue indefinitely. Complex intervention here with 2 wire technique and retrieval of main circumflex through the stent placed in the ostial circumflex OM OM was a large vessel had significant distribution. Transfer to U in stable condition. Only mild pulmonary hypertension noted on right heart catheterization ��������������������������������������������� <ELECTRONICALLY SIGNED> ���������������������������������������� By: Gerardo Raymond MD, FACC ��������������������������������������������� 08/21/18 1143 1143 1143 Gerardo Raymond MD, FAC /INF
== END 2018-08-19 13:22 | disposition home or self-care (01) | DRG 853 ==
LOC: 3W 08:51 → ICU 09:09 → 2N 08-16 13:43 → ENTRNSPT 08-19 12:56 → EDTRNSPTSTS 08-19 13:12 → 2N 08-19 13:22
PROVIDERS: Internal Medicine; Internal Medicine Cardiovascular Disease; Internal Medicine Pulmonary Disease; Nurse Practitioner Adult Health; Pediatrics; Specialist; ADMIT Internal Medicine Geriatric Medicine
PROC: 0BH17EZ Insertion of Endotracheal Airway into Trachea, Via Natural or Artificial Opening (ICD-10-PCS; principal; 2018-08-11)
PROC: 02HV33Z Insertion of Infusion Device into Superior Vena Cava, Percutaneous Approach (ICD-10-PCS; principal; 2018-08-11)
PROC: 5A1935Z Respiratory Ventilation, Less than 24 Consecutive Hours (ICD-10-PCS; principal; 2018-08-11)
PROC: 3E073PZ Introduction of Platelet Inhibitor into Coronary Artery, Percutaneous Approach (ICD-10-PCS; 2018-08-18)
PROC: 027034Z Dilation of Coronary Artery, One Artery with Drug-eluting Intraluminal Device, Percutaneous Approach (ICD-10-PCS; 2018-08-18)
PROC: 4A023N8 Measurement of Cardiac Sampling and Pressure, Bilateral, Percutaneous Approach (ICD-10-PCS; 2018-08-18)
PROC: B2151ZZ Fluoroscopy of Left Heart using Low Osmolar Contrast (ICD-10-PCS; 2018-08-18)
PROC: B2111ZZ Fluoroscopy of Multiple Coronary Arteries using Low Osmolar Contrast (ICD-10-PCS; 2018-08-18)
PROC: B4101ZZ Fluoroscopy of Abdominal Aorta using Low Osmolar Contrast (ICD-10-PCS; 2018-08-18)
DX: A41.9 Sepsis, unspecified organism (principal); J96.21 Acute and chronic respiratory failure with hypoxia; J96.22 Acute and chronic respiratory failure with hypercapnia; N17.0 Acute kidney failure with tubular necrosis; J15.4 Pneumonia due to other streptococci; I42.0 Dilated cardiomyopathy; J44.1 Chronic obstructive pulmonary disease with (acute) exacerbation; J44.0 Chronic obstructive pulmonary disease with (acute) lower respiratory infection; I13.0 Hypertensive heart and chronic kidney disease with heart failure and stage 1 through stage 4 chronic kidney disease, or unspecified chronic kidney disease; K75.9 Inflammatory liver disease, unspecified; Z66 Do not resuscitate; G47.33 Obstructive sleep apnea (adult) (pediatric); M10.9 Gout, unspecified; J44.9 Chronic obstructive pulmonary disease, unspecified; I25.10 Atherosclerotic heart disease of native coronary artery without angina pectoris; I73.9 Peripheral vascular disease, unspecified; N18.3 Chronic kidney disease, stage 3 (moderate); I50.9 Heart failure, unspecified; E78.5 Hyperlipidemia, unspecified; M19.90 Unspecified osteoarthritis, unspecified site; I35.0 Nonrheumatic aortic (valve) stenosis; Z86.711 Personal history of pulmonary embolism; Z79.51 Long term (current) use of inhaled steroids; Z79.82 Long term (current) use of aspirin; Z79.899 Other long term (current) drug therapy; Z82.49 Family history of ischemic heart disease and other diseases of the circulatory system
CPT/HCPCS: 10078; 10081; 27000

== ENCOUNTER 2019-04-07 14:12 | Inpatient (IN) | payer OTHER ==
[~2019-04-07] VITALS: Ht 165.1 cm; Wt 67.4 kg
--- NOTE | ~2019-04-07 | HC ---
[facility] [place] [address] CONSULTATION Name: PRUDENCE MILLS Room #: 213-P ADM IN .R.#: [id number] Admission: 04/07/19 Attend Phys: Arvind Agarwal MD Discharge: Date of : 38 Report #: [id number] THIS REPORT FOR: //name// CC: Arvind Agarwal [facility] physician/PCP Gerardo Raymond REASON FOR CONSULTATION: Elevated creatinine. REASON FOR PRESENTATION: Abnormal kidney function. HISTORY OF PRESENT ILLNESS: A 78-year-old with extensive past medical history including COPD, coronary artery disease, ischemic cardiomyopathy. Also, known to have aortic stenosis, chronic kidney disease with a baseline creatinine of around 1.4. He was in [facility] in the early part of this month in the Emergency Room and his creatinine value was 1.5. The patient has not been feeling well ever since. He was treated for influenza. It looks like that he had some issues with his heart and was discharged on oral Cardizem and Xarelto. He continued to have major issues with shortness of breath and visited with his primary care physician who has done some laboratory values on him that showed an elevated creatinine at 3.2. He reported to decreased oral intake in the last few days with his current flu illness. He was maintained on olmesartan and torsemide as an outpatient. His creatinine has slightly gone down from 3.2-3.1. He has no problems with voiding. He did report to bilateral lower extremity swelling. PAST MEDICAL HISTORY: 1. Coronary artery disease. 2. Hypertension. 3. Aortic stenosis. 4. Atrial fibrillation. 5. Chronic obstructive pulmonary disease. 6. Cardiomyopathy. 7. Recent flu. 8. Postnasal septal repair. 9. Carotid endarterectomy. 10. Carpal tunnel surgery. 11. Chronic kidney disease with a baseline creatinine of around 1.5. FAMILY HISTORY: Significant for heart disease. 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 No drug or alcohol abuse. MEDICATIONS: 1. Xarelto. 2. Atorvastatin. 3. Olmesartan. [facility] [address] [place] [address] CONSULTATION Name: PRUDENCE MILLS Kvng Room #: 213-P [facility] IN ..#: [id number] Admission: 04/07/19 Attend Phys: Arvind Agarwal MD Discharge: Date of : 39 Report #: [id number] 4. Torsemide. 5. Prednisone. 6. Bystolic. REVIEW OF SYSTEMS: GENERAL: Significant for weakness, fever or chills. CARDIOVASCULAR: Shortness of breath. PULMONARY: Wheezes and shortness of breath. GASTROINTESTINAL: No nausea or vomiting, but decreased oral intake. GENITOURINARY: No frequency, no urgency. MUSCULOSKELETAL: Diffuse myalgias. NEUROLOGICAL: No headache, but significant lightheadedness. SKIN: No rash or ulcerations. PHYSICAL EXAMINATION: VITAL SIGNS: Temperature 36.8, pulse rate is 48, respiratory rate is 18, blood pressure is 148/76. HEAD AND NECK: No jugular venous distention. CHEST: Bilateral wheezes. CARDIOVASCULAR: No rub. ABDOMEN: Soft, nontender. LOWER EXTREMITIES: Trace edema. LABORATORY VALUES: Reviewed. White blood cell count was 17.7 yesterday. Chemistry from today showed a sodium of 139, potassium of 4.6, BUN of 102, creatinine of 3.1. UA with 0.4 protein to creatinine ratio. Chest x-ray is clear. ASSESSMENT, IMPRESSION AND PLAN: 1. Acute kidney injury due to his current flu illness, decreased oral intake. This was exacerbated by the fact that he was on olmesartan and torsemide. 2. I agree with holding both olmesartan and torsemide. 3. Continue IV fluids. 4. Watch his pulse and blood pressure. He is currently maintained on low dose Bystolic and Cardizem. 5. Expect his kidney function to continue to improve. I will order very basic lab workup for him. By: 0801 0859 Rosa Isela Marcus MD /nt
[~2019-04-07 14:12] MED LIST: ADVAIR HFA 230M12 GM INH; ALLOPURINOL 10100 M1 PO; ASPIR 8181 MG PO; ATORVASTATIN CA40 MG PO; BENICAR40 MG PO; BYSTOLIC10 MG PO; CEFDINIR300 MG PO; EFFIENT10 MG PO; FLONASE 0.05%50 MCG NASAL; LEVALBUTER1.25 MG/0. INH; MUCINEX100 MG PO; PREDNISONE 10 M10 M1 PO; PREDNISONE 10 M10 MG PO; PROAIR; PROSTATE HEALT1 EAC1 PO; SPIRIVA INH; TORSEMIDE20 MG PO; UNICOMPLEX M TA1 TA1 PO; XANAX 0.25 MG0.25 MG PO
[2019-04-07 14:16] VITALS: BP 94/55
[2019-04-07 14:55] LABS: MCH 27.7 pg (26.0-34.0); MCHC 31.7 g/dL (28.0-37.0); MCV 87.3 fL (80.0-100.0); PLATELET COUNT 441 thou/uL (150-400); RDW 14.8 % (10.5-14.5); WBC 17.7 thou/uL (4.0-11.0)
[2019-04-07 15:00] LABS: ANION GAP 5 mmol/L (7-16); BUN 105 mg/dL (7-18); CALCIUM 9.9 mg/dL (8.5-10.1); CHLORIDE 101 mmol/L (98-107); CO2 34 mmol/L (21-32); CREATININE 3.2 mg/dL (0.7-1.3); GLUCOSE 127 mg/dL (74-106); POTASSIUM 4.7 mmol/L (3.5-5.1); SODIUM 140 mmol/L (136-145)
[2019-04-07 15:10] LABS: ALBUMIN 3.8 g/dL (3.4-5.0); DIRECT BILIRUBIN 0.1 mg/dL (<0.1-0.2); SGOT 21 U/L (15-37); SGPT 54 U/L (30-65); TOTAL BILIRUBIN 0.6 mg/dL (<0.1-1.0); TOTAL PROTEIN 7.5 g/dL (6.4-8.2); TROPONIN-I <0.06 ng/mL (<0.06)
[2019-04-07 15:17] LABS: ABSOLUTE NEUTROPHILS 16.6 thou/uL (1.4-8.2); ANISOCYTOSIS SLIGHT; PLATELET ESTIMATE INCREASED
[2019-04-07 15:18] LABS: OVALOCYTES FEW; POIKILOCYTOSIS SLIGHT
--- NOTE | 2019-04-07 15:30 | EKG ---
[address] [place] [address] ELECTROCARDIOGRAM REPORT Name: PRUDENCE MILLS Room #: PRE [facility].#: [id number] Admission: Attend Phys: Discharge: Date of : 38 Report #: [id number] THIS REPORT FOR: //name// [facility] ED Test Date: 2019-04-07 Test Time: 14:25:20 Pat Name: PRUDENCE MILLS Department: Room: Gender: Automatic Grinder Operator[facility] 1940 Requested By: Griselda Osborne Order Number: [id number] MD: Olaf Ledesma Measurements Intervals [place] Rate: 53 P: 78 [place]: 184 QRS: 67 QRSD: 106 T: 213 QT: 413 QTc: 388 Interpretive Statements Sinus rhythm Atrial premature complex LEFT VENTRICULAR HYPERTROPHY with repolarization abnormalities. Compared to ECG 08/19/2018 09:28:29 Electronically Signed On 04-07-2019 15:29:29 CORE DRILL OPERATOR HELPER by Olaf Ledesma [email or web address] <ELECTRONICALLY SIGNED> By: Olaf Ledesma MD 04/07/19 1529 1425 1425 MD TOMAS Heller
--- NOTE | 2019-04-07 15:48 | EKG ---
[place] [address] [facility] [place] [address] ELECTROCARDIOGRAM REPORT Name: GENEPRUDENCE Room #: PRE [facility].#: [id number] Admission: Attend Phys: Discharge: Date of : 38 Report #: [id number] THIS REPORT FOR: //name// [facility] ED Test Date: 2019-04-07 Test Time: 14:25:20 Pat Name: PRUDENCE MILLS Department: Room: Gender: Telecommunications Technician: TRUMAN : 1940 Requested By: Griselda Osborne Order Number: [id number] MD: Olaf Ledesma Measurements Intervals [place] Rate: 53 P: 78 SC: 184 QRS: 67 QRSD: 106 T: 213 QT: 413 QTc: 388 Interpretive Statements Sinus rhythm Atrial premature complex LEFT VENTRICULAR HYPERTROPHY with repolarization abnormalities. Electronically Signed On 04-07-2019 15:29:29 DETECTIVE CHIEF by Olaf Ledesma Compared to ECG 08/19/2018 09:28:29 Atrial premature complex(es) now present Early repolarization no longer present Electronically Signed On 04-07-2019 15:47:49 DETECTIVE CHIEF by Olaf Ledesma [email or web address] <ELECTRONICALLY SIGNED> By: Olaf Ledesma MD 04/07/19 1547 1425 1425 Olaf Ledesma MD /EPI
[2019-04-07] MEDS ORDERED: MIRALAX119 GM PO (17:00)
[2019-04-07] MEDS ORDERED: DILTIAZEM ER120 MG PO (17:00)
[2019-04-07] MEDS ORDERED: ASA81BEC PO (17:01)
[2019-04-07] MEDS ORDERED: XARELTO20 MG PO (17:01)
[2019-04-07] MEDS ORDERED: BYSTOLIC 5 MG5 MG PO (17:02)
[2019-04-07] MEDS ORDERED: BUSPIRONE HCL7.5 MG PO (17:02)
[2019-04-07 17:25] VITALS: BP 136/72
[2019-04-07 18:11] VITALS: BP 132/65
[2019-04-07 18:36] VITALS: BP 130/72
[2019-04-07 20:30] VITALS: BP 129/71
[2019-04-08 00:58] LABS: PROT/CREAT RATIO 0.4; URINE CREATININE-RANDOM* 46.8 mg/dL; URINE PROTEIN-RANDOM* 20.9 mg/dL (<11.9)
[2019-04-08 04:36] VITALS: BP 148/76
[2019-04-08 05:56] LABS: HEMOGLOBIN 11.6 gm/dL (14.0-18.0); MCHC 32.2 g/dL (28.0-37.0); RBC 4.14 mil/uL (4.50-6.00); RDW 14.1 % (10.5-14.5); WBC 9.4 thou/uL (4.0-11.0)
[2019-04-08 06:05] LABS: CALCIUM 8.8 mg/dL (8.5-10.1); CREATININE 3.1 mg/dL (0.7-1.3); POTASSIUM 4.6 mmol/L (3.5-5.1)
--- NOTE | 2019-04-08 08:00 | NUR ---
ASSUMED PT CARE AROUND 1909. PT IN BED WITH FAMILY AT BEDSIDE. PT ADMISSION AND ASSESSMENT CHARTED. PT MEDICATIONS GIVEN PER ORDERS. PT RESTED THRU NIGHT WITH MINIMAL INTERRUPTIONS. PT HAD NO C/O PAIN, CP, N/V/D. WILL CONTINUE TO MONITOR PER PHYSICIAN ORDERS.
[2019-04-08 08:37] VITALS: BP 124/87
[2019-04-08 12:16] VITALS: BP 135/63
--- NOTE | 2019-04-08 17:22 | 2DMMODE ---
[facility] [address] [place] [address] 2 D/M-MODE ECHOCARDIOGRAM Name: GENEPRUDENCE Room #: 213-P [facility] IN ..#: [id number] Admission: 04/07/19 Attend Phys: Arvind Agarwal MD Discharge: Date of : 39 Report #: [id number] THIS REPORT FOR: //name// APPROVED REPORT Study performed: 04/08/2019 09:04:12 EXAM: Comprehensive 2D, Doppler, and color-flow Echocardiogram Patient Location: Bedside Room #: 213 Status: routine BSA: 1.72 HR: 82 bpm BP: 148/76 mmHg Rhythm: NSR Other Information Study Quality: Technically DifficultTechnically Limited Indications COPD Dyspnea CAD Cardiomyopathy Hypertension/HDD 2D Dimensions RVDd: 29.48 mm IVSd: 10.10 (7-11mm) LVOT Diam: 22.58 (18-24mm) LVDd: 40.48 mm PWd: 9.95 (7-11mm) Ascending Ao: 34.71 (22-36mm) LVDs: 32.76 (25-40mm) Aortic Root: 29.54 mm Volumes Left Atrial Volume (Systole) Single Plane 4CH: 46.55 mL Single Plane 2CH: 45.60 mL Aortic Valve AoV Peak Francois.: 3.23 m/s AO Peak Gr.: 41.85 mmHg LVOT Max P.66 mmHg AO Mean Gr.: 22.73 mmHg LVOT Mean P.89 mmHg AO V2 Mean: 2.22 m/s LVOT Max V: 0.96 m/s AO V2 VTI: 69.11 cm LVOT Mean V: 0.62 m/s [facility] [address] [address] 2 D/M-MODE ECHOCARDIOGRAM Name: PRUDENCE MILLS Room #: 213-P [facility] IN [facility]#: [id number] Admission: 04/07/19 Attend Phys: Arvind Agarwal MD Discharge: Date of : 39 Report #: [id number] GENNA (VTI): 1.27 cm2 LVOT V1 VTI: 21.86 cm GENNA Vmax: 1.18 cm2 AI Vmax: 3.32 m/s SV (LVOT): 87.49 mL AI Kent: 1.89 m/s2 AI PHT: 508.81 ms Mitral Valve E/A Ratio: 0.6 MV Decel. Time: 274.12 ms MV E Max Francois.: 0.87 m/s MV A Francois.: 1.40 m/s MV PHT: 79.49 ms IVRT: 179.93 ms Pulmonary Valve PV Peak Francois.: 1.12 m/s PV Peak Gr.: 4.99 mmHg Pulmonary Vein P Vein S: 0.71 m/s P Vein A: 0.37 m/s P Vein D: 0.47 m/s P Vein A Dur.: 124.6 msec P Vein S/D Ratio: 1.51 Tricuspid Valve TR Peak Francois.: 2.99 m/s TR Peak Gr.: 35.70 mmHg Left Ventricle The left ventricle is normal size. Regional wall motion is not well visualized but grossly normal. There is normal left ventricular wall thickness. The left ventricular systolic function is normal. The left ventricular ejection fraction is within the normal range. LVEF is 50-55%. Mild diastolic dysfunction is present (impaired relaxation pattern). Right Ventricle The right ventricle is normal size. The right ventricular systolic function is normal. Atria The left atrium size is normal. The right atrium size is normal. Aortic Valve Aortic valve is poorly imaged. Moderately calcified leaflets, moderately stenotic Mild aortic regurgitation. Calculated aortic valve area is 1.4 cm2 with maximum pressure gradient of 42 mmHg and [facility] [address] [place] [address] 2 D/M-MODE ECHOCARDIOGRAM Name: PRUDENCE MILLS Room #: 213-P [facility] IN ..#: [id number] Admission: 04/07/19 Attend Phys: Arvind Agarwal MD Discharge: Date of : 39 Report #: [id number] mean pressure gradient of 22 mmHg. Mitral Valve Mild mitral annular calcification There is no mitral valve regurgitation noted. No evidence of mitral valve stenosis. Tricuspid Valve The tricuspid valve is normal in structure. There is mild tricuspid valve regurgitation noted. Pulmonary artery systolic pressure 40 mmHg Great Vessels IVC is normal in size and collapses >50% with inspiration. Pericardium There is no pericardial effusion. <Conclusion> Technically difficult study The left ventricular systolic function is normal. Regional wall motion is not well visualized but grossly normal. LVEF is 50-55%. Mild diastolic dysfunction Aortic valve is poorly imaged. Moderately calcified leaflets, moderately stenotic. Mild insufficiency Calculated aortic valve area is 1.4 cm2 with maximum pressure gradient of 42 mmHg and mean pressure gradient of 22 mmHg. Mild mitral annular calcification. No mitral valve regurgitation noted. Pulmonary artery pressure of 40 mmHg There is no pericardial effusion. <ELECTRONICALLY SIGNED> By: Vazquez Vazquez MD, FACC 04/08/191721 21 21 Vazquez Vazquez MD, FACC /INF
[2019-04-08 18:23] VITALS: BP 132/60
--- NOTE | 2019-04-08 19:20 | NUR ---
PT ALERT AND ORIENTED. VSS. RT TREATMENT PROVIDED ORDERED. NO RESPIRATORY DISTRESS NOTED. WILL CONTINUE TO MONITOR.
[2019-04-08 20:42] VITALS: BP 130/70
[2019-04-09 03:46] VITALS: BP 131/78
--- NOTE | 2019-04-09 04:12 | NUR ---
ASSUMED PT CARE AROUND 1930. PT WAS ENGAGING WITH FAMILY AT BEDSIDE. PT INQUIRED ON WHETHER HE WOULD BE ABLE TO GET COLONOSCOPY. ADVISED THAT HE SHOULD INQUIRE THIS WITH THE ATTENDING WHEN THEY MAKE ROUNDS IN THE MORNING. PT EDEMA HAS DECREASED. PT IS STEADY ON GAIT AND UP AD SRINIVAS. PT C/O NO PAIN, N/V/D. PATIENT IS PROGRESSING TOWARDS PLAN OF CARE.
[2019-04-09 05:31] LABS: ALBUMIN 2.8 g/dL (3.4-5.0); CALCIUM 8.4 mg/dL (8.5-10.1); CREATININE 2.4 mg/dL (0.7-1.3); PHOSPHORUS 4.5 mg/dL (2.5-4.9); POTASSIUM 4.2 mmol/L (3.5-5.1)
[2019-04-09 07:30] VITALS: BP 137/82
--- NOTE | 2019-04-09 08:49 | EKG ---
[place] [address] [address] [facility] [place] [address] ELECTROCARDIOGRAM REPORT Name: PRUDENCE MILLS Kvng Room #: 213- ADM IN M.R.#: [id number] Admission: 04/07/19 Attend Phys: Arvind Agarwal MD Discharge: Date of : 39 Report #: [id number] THIS REPORT FOR: //name// [facility] Test Date: 2019-04-08 Test Time: 17:34:29 Pat Name: PRUDENCE MILLS Department: Room: 213 P Gender: M Labor Service Representative: Lisa DELAROSA : 1940 Requested By: Gerardo Raymond Order Number: [id number] MD: Vazquez Vazquez Measurements Intervals [place] Rate: 68 P: 75 SD: 178 QRS: 64 QRSD: 105 T: 225 QT: 393 QTc: 418 Interpretive Statements Sinus rhythm Atrial premature complex Repol abnrm suggests ischemia, anterolateral Baseline wander in lead(s) II,V3 Compared to ECG 04/07/2019 14:25:20 No significant change was found Electronically Signed On 04-09-2019 8:48:32 MANAGER CUSTOMER SERVICE by Vazquez Vazquez [email or web address] <ELECTRONICALLY SIGNED> By: Vazquez Vazquez MD, [facility] 04/09/19 0848 1734 1734 Vazquez Vazquez MD, [facility] /EPI
[2019-04-09 10:30] VITALS: BP 127/64
--- NOTE | 2019-04-09 15:58 | NUR ---
ASSESSMENT CHARTED. PT ALERT AND ORIENTED. VSS. REPORT HAVING SOME STOMACH DISCOMFORT. DR. THORNTON NOTIFIED. NEW ORDERS RECEIVED. NO RESPIRATORY DISTRESS NOTED. ORDERS GIVEN TO TRANSFER PT TO [facility]. REPORT CALLED IN TO THE NURSE.
--- NOTE | 2019-04-09 16:52 | NUR ---
PT ARRIVED AT 1600 FROM CCU. ALERT AND ORIENTED*4. ANGRY OVER BP CUFF, "THEY CHARGED ME FOR IT AND DIDN'T SEND IT WITH ME, CALL THEM AND HAVE THEM BRING IT, AND DON'T BRING ME A NEW ONE"/ EUGENIO. STAFF REASSURED PT THAT HE WASN'T GOING TO BE CHARGED FOR A 2ND ONE. VITALS ARE STABLE. HS S1S2, BLE EDEMA 2+. ABDOMEN SOFT BUT DISTENDED, HYPERACTIVE BS, LAST BM TODAY, MG CITRATE AND MIRALAX ADMIN IN CCU. LS CLEAR BUT DIMINISHED IN THE BASES. PT UP AD SRINIVAS. DENIES PAIN AT THIS TIME. Q1H VISUAL CHECKS. CALL LIGHT WITHIN REACH
[2019-04-09 19:03] VITALS: BP 140/602
--- NOTE | 2019-04-10 01:20 | NUR ---
PATIENT AOX4 MAKES NEEDS KNOWN. PATIENT HAS SHORTNESS OF AIR WITH ACTIVITIES. PATIENT HAS WHEEZING AND COARSE THIS SHIFT BREATHING TREATMENT GIVEN BY RT. PATIENT IS ON CONTINOUS OXYGEN 2L. PATIENT HAD MIRALAX AWAITING FOR RESULT. PATIENT AMBULATES WITH STEADY GAITS TO THE BATHROOM. PATIENT DENIED PAIN OR DISCOMFORT. CALL LIGHT AND PERSONAL ITEM WITHIN REACH. PATIENT IN BED ASLEEP AT THIS TIME BREATHING REGULAR AND UNLABOURED.
[2019-04-10 06:26] LABS: ALBUMIN 2.7 g/dL (3.4-5.0); CALCIUM 8.6 mg/dL (8.5-10.1); CREATININE 1.9 mg/dL (0.7-1.3); PHOSPHORUS 2.9 mg/dL (2.5-4.9); POTASSIUM 4.4 mmol/L (3.5-5.1)
[2019-04-10 08:00] VITALS: BP 153/78
--- NOTE | 2019-04-10 10:46 | NUR ---
PT ADMITTED RELATED TO ACUTE ON CHRONIC KIDNEY INJURY, DEP. EDEMA, DYSPNEA. CM REVIEWED CHART AND SPOKE WITH CARE TEAM. CM MET WITH PT AT BEDSIDE THIS DAY. PT IS A&O X4. CM ROLE INTRODCUED. PT INDICATED HE LIVES IN A HOUSE [place] WITH HIS . PT INDICATED THERE ARE 3 STEPS TO ENTER AND 12 STEPS TO BASEMENT. 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 PT INDICATED NO DME HX. PT INDICATED PCP IS DR. KAREEM YAO. PT INDICATED HE HAD DONE OP THERAPY AT [facility] IN THE PAST. PT IS ON 2L O2 CURRENTLY NO OR AIRCRAFT MECHANIC ARMAMENT. CM TO FOLLOW INDICATED WITH DC PLANNING.
[2019-04-10 15:00] VITALS: BP 152/78
--- NOTE | 2019-04-10 15:53 | NUR ---
CARE TEAM INDICATED THAT PT MAY BE MEDICALLY STABLE FOR DC HOME TOMORROW. EX OX TESTING TO BE DONE TO SEE IF PT NEED HOME O2. CM SENT REFERRAL TO [facility] AND PROVIDED HEADS UP THAT TESTING IS TO BE DONE TOMORROW AND IF PT QUALIFIES TESTING RESULTS AND ORDER WILL BE FAXED OVER THEM THEM TO PROVIDE HOME O2. SHOULD PT QUALIFY FOR HOME O2 FOR DC FAX TESTING AND SCRIPT TO [facility] CALL OFFICE AT .
--- NOTE | 2019-04-10 16:07 | NUR ---
Assumed patient care at 0715. Vital signs have been stable. Patient continues on O2 at 2 liters per nc; he needs reminders to wear this. Patient has been tolerating IV Antibiotics well. Patient reported to this nurse that he has not had a bowel movement for three days; he is very upset about this. Dr Agarwal contacted. Patient to start on Bisacodyl Suppositories and Senna po. Patient has also been placed on a Clear Liquid Diet. He is alert and oriented x's 4, is up ad misael. Lung sounds continue as coarse. Patient was taken off of Sodium Chloride 0.9% at 75cc/hour. Will continue to monitor patient.
--- NOTE | 2019-04-10 17:25 | NUR ---
RESUME PT CARE AT 1725. PT TRANSFERRED FROM 4W RECEIVED REPORT FROM NURSE RAGHU. PT AOX4, VSS, NO C/O PAIN AT THIS TIME. PT ON 5L/O2 NC. TRANSFERS WITH SB ASSIST, URINAL AT BEDSIDE. CALL LIGHT/PERSONAL ITEMS IN REACH. WILL CONTINUE TO MONITOR PT.
[2019-04-10 18:51] VITALS: BP 147/68
--- NOTE | 2019-04-11 00:12 | NUR ---
PATIENT AOX4 MAKES NEEDS KNOWN. PATIENT IS UP AT SRINIVAS.PATIENTS LUNGS ARE WHEEZY AND COARSE. O2 SAT >95% ON CONTINOUS 2L. PATIENT HAS A PRODUCTIVE COUGH THIS SHIFT. PATIENT IS SHORT OF AIR WITH ACTIVITIES. PATIENT HAD A LIQUID BOWEL MOVEMENT THIS SHIFT PERICARE AND BARRIER CREAM APPLIED NEEDED. PATIENT DENIED PAIN OR DISCOMFORT. PATIENT IN BED ASLEEP AT THIS TIME BREATHING REGULAR AND UNLABOURED.
[2019-04-11 07:47] VITALS: BP 147/71
[2019-04-11] MEDS ORDERED: PANTOPRAZOLE SO40 M1 PO (14:35)
[2019-04-11] MEDS ORDERED: MUCINEX DM ER1 EAC1 PO (14:35)
[2019-04-11] MEDS ORDERED: ACETAMINOPHEN325 M1 PO (14:35)
[2019-04-11] MEDS ORDERED: ALBUTEROL2.5 MG/31 INH (14:35)
[2019-04-11] MEDS ORDERED: DEEP SEA NASAL44 M1 NASAL (14:35)
[2019-04-11] MEDS ORDERED: XARELTO15 MG PO (14:35)
[2019-04-11] MEDS ORDERED: AUGMENTIN 875-1 EACH PO (14:43)
[2019-04-11 14:56] VITALS: BP 147/71
[2019-04-11 15:23] VITALS: BP 150/69
--- NOTE | 2019-04-11 16:34 | NUR ---
Patient was Discharged at 1630 today after signing all Discharge Paperwork. Discharge Instructions explained to daughter and patient. Patient's vital signs have been stable during this shift. He has been consuming Full Liquid Diet without nausea and/or vomiting. It was explained to patient and daughter to advance diet slowly and call PCP if he becomes nauseated and/or starts vomiting. Patient Discharged back home with .
== END 2019-04-11 16:30 | disposition home or self-care (01) | DRG 682 ==
LOC: ER 14:12 → 2N 17:34 → EROBS 17:34 → 2N 18:15 → ENTRNSPT 04-09 15:28 → EDTRNSPTSTS 04-09 15:42 → 4W 04-09 15:59 → CMPTRNSPT 04-10 10:58 → 4N 04-10 17:00 → 4W 04-10 17:23
PROVIDERS: Emergency Medicine; Hospitalist; Internal Medicine Pulmonary Disease; ADMIT Hospitalist
DX: N17.9 Acute kidney failure, unspecified (principal); J96.21 Acute and chronic respiratory failure with hypoxia; I48.20 Chronic atrial fibrillation, unspecified; J44.1 Chronic obstructive pulmonary disease with (acute) exacerbation; I42.0 Dilated cardiomyopathy; J45.901 Unspecified asthma with (acute) exacerbation; J44.0 Chronic obstructive pulmonary disease with (acute) lower respiratory infection; K59.00 Constipation, unspecified; N18.9 Chronic kidney disease, unspecified; G47.33 Obstructive sleep apnea (adult) (pediatric); I73.9 Peripheral vascular disease, unspecified; I12.9 Hypertensive chronic kidney disease with stage 1 through stage 4 chronic kidney disease, or unspecified chronic kidney disease; I65.29 Occlusion and stenosis of unspecified carotid artery; I25.5 Ischemic cardiomyopathy; I35.0 Nonrheumatic aortic (valve) stenosis; I25.10 Atherosclerotic heart disease of native coronary artery without angina pectoris; E78.5 Hyperlipidemia, unspecified; D72.829 Elevated white blood cell count, unspecified; J11.1 Influenza due to unidentified influenza virus with other respiratory manifestations; F41.9 Anxiety disorder, unspecified; G47.00 Insomnia, unspecified; Z79.82 Long term (current) use of aspirin; Z79.01 Long term (current) use of anticoagulants; Z86.711 Personal history of pulmonary embolism; Z95.5 Presence of coronary angioplasty implant and graft; Z82.49 Family history of ischemic heart disease and other diseases of the circulatory system; Z79.899 Other long term (current) drug therapy
CPT/HCPCS: 10047; 10081

== ENCOUNTER → 2019-04-30 | Outpatient (CLI) | payer OTHER ==
[~2019-04-30] MED LIST changes: +ACETAMINOPHEN325 M1 PO; +ALBUTEROL2.5 MG/31 INH; +ASA81BEC PO; +AUGMENTIN 875-1 EACH PO; +BUSPIRONE HCL7.5 MG PO; +BYSTOLIC 5 MG5 MG PO; +DEEP SEA NASAL44 M1 NASAL; +DILTIAZEM ER120 MG PO; +MIRALAX119 GM PO; +MUCINEX DM ER1 EAC1 PO; +PANTOPRAZOLE SO40 M1 PO; +XARELTO15 MG PO; +XARELTO20 MG PO
== END ==
LOC: SJCVC 15:03
DX: I45.4 Nonspecific intraventricular block (principal); I49.1 Atrial premature depolarization; R94.31 Abnormal electrocardiogram [ECG] [EKG]; I25.10 Atherosclerotic heart disease of native coronary artery without angina pectoris; E78.00 Pure hypercholesterolemia, unspecified; I10 Essential (primary) hypertension; I42.9 Cardiomyopathy, unspecified; I35.0 Nonrheumatic aortic (valve) stenosis; I65.23 Occlusion and stenosis of bilateral carotid arteries; I48.0 Paroxysmal atrial fibrillation; J44.9 Chronic obstructive pulmonary disease, unspecified; Z86.711 Personal history of pulmonary embolism; Z79.899 Other long term (current) drug therapy

== ENCOUNTER → 2019-10-13 | Outpatient (CLI) | payer OTHER ==
[~2019-10-13] MED LIST changes: +ALLOPURINOL 10100 M3 PO
== END ==
LOC: SJCVCIMAG 10:59
PROVIDERS: ATTEND Internal Medicine Cardiovascular Disease
DX: I08.0 Rheumatic disorders of both mitral and aortic valves (principal); I42.9 Cardiomyopathy, unspecified; I48.0 Paroxysmal atrial fibrillation; J44.1 Chronic obstructive pulmonary disease with (acute) exacerbation; I25.10 Atherosclerotic heart disease of native coronary artery without angina pectoris; I10 Essential (primary) hypertension; E78.00 Pure hypercholesterolemia, unspecified; I73.9 Peripheral vascular disease, unspecified; E78.5 Hyperlipidemia, unspecified; Z82.49 Family history of ischemic heart disease and other diseases of the circulatory system; Z79.82 Long term (current) use of aspirin; Z79.899 Other long term (current) drug therapy

== ENCOUNTER → 2019-10-28 | Outpatient (CLI) | payer OTHER ==
[~2019-10-28] MED LIST changes: -ALLOPURINOL 10100 M3 PO
== END ==
LOC: SJCVCIMAG 07:02
PROVIDERS: ATTEND Internal Medicine Cardiovascular Disease
DX: I25.10 Atherosclerotic heart disease of native coronary artery without angina pectoris (principal); I48.91 Unspecified atrial fibrillation; I42.9 Cardiomyopathy, unspecified; I49.3 Ventricular premature depolarization; E78.5 Hyperlipidemia, unspecified; J44.9 Chronic obstructive pulmonary disease, unspecified; Z98.61 Coronary angioplasty status; Z79.899 Other long term (current) drug therapy

== ENCOUNTER → 2019-11-19 | Outpatient (CLI) | payer OTHER ==
[~2019-11-19] VITALS: Ht 167.6 cm; Wt 67.6 kg
[~2019-11-19] MED LIST changes: +ALLOPURINOL 10100 M3 PO
[2019-11-19 07:15] VITALS: BP 132/88
[2019-11-19 07:39] LABS: ABSOLUTE NEUTROPHILS 5.1 thou/uL (1.4-8.2); BASOPHILS 0.5 % (0.0-2.0); HEMATOCRIT 35.5 % (42.0-52.0); HEMOGLOBIN 11.5 gm/dL (14.0-18.0); LYMPHOCYTES 29.3 % (24.0-44.0); MCH 27.4 pg (26.0-34.0); MCHC 32.5 g/dL (28.0-37.0); MCV 84.4 fL (80.0-100.0); MONOCYTES 10.8 % (1.0-8.0); PLATELET COUNT 350 thou/uL (150-400); POLYS 57.4 % (36.0-66.0); RBC 4.21 mil/uL (4.50-6.00); RDW 16.6 % (10.5-14.5); WBC 8.9 thou/uL (4.0-11.0)
--- NOTE | 2019-11-19 07:43 | EKG ---
[facility] [place] [address] ELECTROCARDIOGRAM REPORT Name: PRUDENCE MILLS Room #: REG [facility]#: [id number] Admission: 11/19/19 Attend Phys: Gerardo Raymond MD, Discharge: Date of : 38 Report #: [id number] THIS REPORT FOR: cc: Brian Pacheco James L. DO Lundgren, Craig H. MD [facility] ~ THIS REPORT FOR: //name// [facility] Test Date: 2019-11-19 Test Time: 07:20:30 Pat Name: PRUDENCE MILLS Department: Room: Gender: Associate Manager: [facility] : 1940 Requested By: Gerardo Raymond Order Number: [id number] MD: Vazquez Vazquez Measurements Intervals Josephine Rate: 78 P: 71 [place]: 204 QRS: 37 QRSD: 110 T: 55 QT: 391 QTc: 446 Interpretive Statements Sinus rhythm Normal tracing Compared to ECG 04/08/2019 17:34:29 Atrial premature complex(es) no longer present ST and T wave abnormality is no longer present Electronically Signed On 11-19-2019 7:43:02 CDT by Vazquez Vazquez [email or web address] <ELECTRONICALLY SIGNED> By: Vazquez Vazquez MD, [facility] 11/19/1944 9 9 Vazquez Vazquez MD, [facility] /EPI
[2019-11-19 07:57] LABS: CALCIUM 9.1 mg/dL (8.5-10.1); CREATININE 1.7 mg/dL (0.7-1.3); POTASSIUM 3.3 mmol/L (3.5-5.1)
--- NOTE | 2019-11-20 16:25 | CATHLAB ---
[facility] [address] [place] [address] INVASIVE PROCEDURE REPORT Name: PRUDENCE MILLS Room #: REG [facility]isa#: [id number] Admission: 11/19/19 Attend Phys: Gerardo Raymond MD, Discharge: Date of : 38 Report #: [id number] THIS REPORT FOR: cc: Brian Pacheco James L. DO Mancuso, Gerald M. MD [facility] ~ APPROVED REPORT Study performed: 11/19/2019 10:12:49 Patient Details Patient Status: Out-Patient Room #: The patient is a 79 year-old male Event Personnel Gerardo Raymond Assembly Line Upholsterer, Madonna Juárez RN RN, Holly Jiang RTR Scrub, Iqra Franklin Scrub, Gavin Mays RTR Monitor Procedures Performed Art Access - R femoral artery* Jake Access - R femoral vein Right and Left Heart Cath w/or w/o Coronarie [id number] [facility] Renal Bilateral Peripheral Angiography [id number] CVRENALBIL Hemostasis w/ Mynx 11061 Initial Mod Sed Same Phys/QHP Gr5y [id number] 61450 Mod Sed Same Phys/QHP Ea [id number] Indication Chest pain Procedure Narrative The Right Groin^ was infiltrated with 1% Lidocaine subcutaneous anesthesia. A Right Heart Catheterization was performed with a 7 Fr. [place] catheter and pressure were recorded. Cardiac outputs were obtained by the Thermal Dilution method. A 7 F sheath was inserted into the RFV 7F^. Coronary angiography was performed using coronary diagnostic catheters. The right coronary system was accessed and visualized with a JR4 catheter. The left coronary system was accessed and visualized with a JL4 catheter. The left ventricle was accessed and visualized with a STR PIG catheter. Left ventriculogram was performed in 30 degree projection. There was no hematoma. Fluoro Time: 9.50 minutes Dose: DAP 19936.00 cGycm2 Contrast Type and Amount: Visipaque 82 ml [facility] [place] [address] INVASIVE PROCEDURE REPORT Name: PRUDENCE MILLS Kvng [facility] [id number] Admission: 11/19/19 Attend Phys: Gerardo Raymond, Discharge: Date of : 38 Report #: [id number] Hemodynamics The right ventricular pressure is 40/7 mmHg. The mean pulmonary capillary wedge pressure is 14 mmHg. The aortic pressure is 114/47 mmHg with a mean of 69 mmHg. The left ventricular pressure is 137/11 mmHg with a mean of mmHg. The left ventricular end diastolic pressure is 19 mmHg. The cardiac output using thermo method is 4.30 L/min. The cardiac index using thermo method is 2.43 L/min/m2. PCI Technique Lesion Percutaneous coronary intervention was performed on the Right Renal. PCI Technique Lesion 2 Percutaneous Coronary Intervention was performed on the Unspecified. Conclusion #1. Normal left ventricular size systolic function mildly reduced EF 45 to 50% range #2 left main mild calcification giving rise to LAD and circumflex nonocclusive #3 LAD moderately small caliber with mild irregularities extends to the apex. #4 nondominant but moderately large circumflex OM system with mild irregularity #5 dominant right which is small in caliber but giving rise to the small PDA is mildly diseased #6 successful right heart catheterization with hemodynamics as noted above. Recommendations and plan: Stable coronary disease. Patient has high-grade right renal artery stenosis which will be addressed by Dr. Daly see his dictation. Continue aggressive medical therapy. <ELECTRONICALLY SIGNED> By: Gerardo Raymond MD, FACC 11/20/19 1625 24 162 Gerardo Raymond MD, FACC /INF
== END | disposition home or self-care (01) ==
LOC: CATH 06:23
PROVIDERS: ATTEND Internal Medicine Cardiovascular Disease
DX: R07.9 Chest pain, unspecified (principal); I70.213 Atherosclerosis of native arteries of extremities with intermittent claudication, bilateral legs; I70.1 Atherosclerosis of renal artery; I25.10 Atherosclerotic heart disease of native coronary artery without angina pectoris; I15.0 Renovascular hypertension; I10 Essential (primary) hypertension; I48.91 Unspecified atrial fibrillation; E78.5 Hyperlipidemia, unspecified; J44.9 Chronic obstructive pulmonary disease, unspecified; Z98.890 Other specified postprocedural states; Z79.899 Other long term (current) drug therapy; Z86.711 Personal history of pulmonary embolism; Z79.01 Long term (current) use of anticoagulants

== ENCOUNTER → 2020-02-17 | Outpatient (CLI) | payer OTHER | LOC: SJCVCINTER 07:50 → SJCVCIMAG 08:04 → SJCVCINTER 10:39 | PROVIDERS: ATTEND Nuclear Medicine Nuclear Cardiology | DX: I10 Essential (primary) hypertension (principal); N28.1 Cyst of kidney, acquired; R94.31 Abnormal electrocardiogram [ECG] [EKG]; I25.10 Atherosclerotic heart disease of native coronary artery without angina pectoris; I35.0 Nonrheumatic aortic (valve) stenosis; I48.0 Paroxysmal atrial fibrillation; I70.1 Atherosclerosis of renal artery; J44.1 Chronic obstructive pulmonary disease with (acute) exacerbation; I77.9 Disorder of arteries and arterioles, unspecified; Z79.899 Other long term (current) drug therapy ==

== ENCOUNTER → 2020-10-24 | Outpatient (CLI) | payer OTHER | LOC: SJCVCIMAG 08:23 | PROVIDERS: ATTEND Internal Medicine Cardiovascular Disease | DX: I35.1 Nonrheumatic aortic (valve) insufficiency (principal); I11.9 Hypertensive heart disease without heart failure; I25.10 Atherosclerotic heart disease of native coronary artery without angina pectoris; I35.0 Nonrheumatic aortic (valve) stenosis; I70.1 Atherosclerosis of renal artery; I77.9 Disorder of arteries and arterioles, unspecified; I42.9 Cardiomyopathy, unspecified; E78.00 Pure hypercholesterolemia, unspecified; D68.59 Other primary thrombophilia; I49.3 Ventricular premature depolarization; Z95.5 Presence of coronary angioplasty implant and graft; I48.0 Paroxysmal atrial fibrillation; J44.9 Chronic obstructive pulmonary disease, unspecified; E78.5 Hyperlipidemia, unspecified; G47.33 Obstructive sleep apnea (adult) (pediatric); Z98.890 Other specified postprocedural states; Z79.899 Other long term (current) drug therapy; Z86.711 Personal history of pulmonary embolism; Z82.49 Family history of ischemic heart disease and other diseases of the circulatory system ==